=== PATIENT | female | born 1990 | race Caucasian/White ===

== ENCOUNTER 2017-04-29 05:57 | Inpatient (IN) ==
[2017-04-29] MEDS ORDERED: MEPERIDINE 50 MG/1 ML VIAL IM PRN (06:38)
[2017-04-29] MEDS ORDERED: ONDANSETRON 4 MG/2 ML VIAL IV PRN ×2 (06:38→19:49)
[2017-04-29] MEDS ORDERED: CITRIC ACID/SODIUM CITRATE 30 ML UDCUP PO ONE (06:45)
[2017-04-29] MEDS ORDERED: FAMOTIDINE 20 MG/2 ML VIAL IV ONE (06:46)
[2017-04-29] MEDS ORDERED: OXYTOCIN/LR 20 UNIT/1,000 ML BAG IV SCH (07:00)
[2017-04-29] MEDS ORDERED: fentaNYL 2 MCG/ROPIV 0.2% EPID 150 ML EPIDURAL SCH (07:00)
[2017-04-29 07:20] LABS: Basophils % 0.1 % (0.0-0.8); Eosinophils # 0.1 10*3/uL (0.0-0.87); Eosinophils % 0.8 % (0.00-10.9); Hematocrit 29.8 VOL% (35.7-47.0); Hemoglobin 9.9 GM/DL (12.0-16.0); Immature Granulocytes % 0.4 %; Immature Granulocytes Absolute 0.03 #; Lymphocytes # 1.3 10*3/uL (1.4-4.0); Lymphocytes % 18.4 % (21.3-54.2); Mean Corpuscular HGB Conc 33.2 GM/DL (32-36); Mean Corpuscular Hemoglobin 28 PG (27-34); Mean Corpuscular Volume 85.4 FL (87-102); Mean Platelet Volume 9.7 FL (9.6-12.0); Monocytes # 0.4 10*3/uL (0.11-0.8); Monocytes % 5.6 % (1.7-12.7); Neutrophils # 5.3 10*3/uL (1.4-7.4); Neutrophils % 74.7 % (38.7-73.9); Platelet Count 196 T/CUMM (130-400); Red Blood Count 3.49 MC/CUMM (3.8-5.5); Red Cell Distribution Width 13.1 % (9.3-17.3); White Blood Count 7.1 T/CUMM (4-12)
[2017-04-29 07:30] LABS: INR 0.9; PT Patient Result 9.6 SECS; Partial Thromboplastin Time 27.8 SECS (0-40)
[2017-04-29] MEDS ORDERED: INFLUENZA VIRUS VACCINE 0.5 ML SYRINGE IM ONE (07:30)
[2017-04-29] MEDS: LACTATED RINGERS 1,000 ML IV SCH ×2 (07:33→16:01)
[2017-04-29 07:37] LABS: Apearance,Urine CLOUDY (Clear); Bilirubin,Urine Negative (Negative); Blood, Urine Large mg/dL (Negative); Calcium Oxalate Crystals,Urine Moderate /HPF (Few); Glucose,Urine (UA) Negative (Negative); Ketones,Urine 5 mg/dL (Negative); Mucus,Urine Many /LPF (Occasional); Nitrite,Urine Negative (Negative); Protein,Urine 30 MG/DL; RBC,Urine 257 /HPF (0-4); Squamous Epithelial Cell,Urine Many /HPF (0-10); Urine Color Amber (Yellow); Urine Specific Gravity 1.029 (1.001-1.035); WBC,Urine 95 /HPF (0-6)
[2017-04-29 07:42] LABS: Barbiturates Screen,Urine Negative (Negative); Benzodiazepines Screen,Urine Negative (Negative); Cannabinoid Screen,Urine Positive (Negative); Opiate Screen,Urine Negative (Negative); Phencyclidine Screen,Urine Negative (Negative)
[2017-04-29 07:47] LABS: Albumin 2.6 G/DL (3.4-5.0); Bilirubin,Total 0.5 MG/DL (0.2-1.0); Calcium 8.6 MG/DL (8.5-10.1); Osmolality,Calculated 275.4 MOS/KG (273-304); Potassium 3.5 MMOL/L (3.5-5.1); Uric Acid 4.8 MG/DL (2.6-6.0)
[2017-04-29] MEDS ORDERED: ePHEDrine 50 MG/ML AMP ONE (08:18)
[2017-04-29] MEDS ORDERED: LACTATED RINGERS 1,000 ML IV ONE (08:49)
[2017-04-29] MEDS ORDERED: LABETALOL 100 MG TABLET PO SCH (09:00)
[2017-04-29 12:42] LABS: Apearance,Urine CLEAR (Clear); Bacteria,Urine Occasional /HPF (Few); Bilirubin,Urine Negative (Negative); Blood, Urine Moderate mg/dL (Negative); Glucose,Urine (UA) Negative (Negative); Ketones,Urine Negative (Negative); Mucus,Urine Occasional /LPF (Occasional); Nitrite,Urine Negative (Negative); Protein,Urine Negative; RBC,Urine 22 /HPF (0-4); Squamous Epithelial Cell,Urine Occasional /HPF (0-10); Urine Color Yellow (Yellow); Urine Specific Gravity 1.012 (1.001-1.035); Urine Urobilinogen < 2.0 EU/DL (0.2-1.0); WBC,Urine 2 /HPF (0-6)
[2017-04-29] MEDS ORDERED: miSOPROStol 200 MCG TABLET ONE (13:11)
[2017-04-29] MEDS ORDERED: METHYLERGONOVINE 0.2 MG/1 ML AMP ONE (13:12)
[2017-04-29] MEDS ORDERED: miSOPROStol 200 MCG TABLET RECTAL ONE (14:03)
[2017-04-29 14:29] LABS: Cord Venous Blood HCO3 23.2 MMOL/L; Cord Venous Blood PCO2 38.1 MMHG
[2017-04-29] MEDS ORDERED: OXYTOCIN/LR 20 UNIT/1,000 ML BAG IV ONE (15:05)
[2017-04-29] MEDS ORDERED: oxyCODONE/ACETAMINOPHEN 5-325 MG TABLET PO PRN ×2 (17:04→23:51)
[2017-04-29] MEDS ORDERED: RHO(D) IMMUNE GLOBULIN 300 MCG SYRINGE IM ONE (17:04)
[2017-04-29] MEDS ORDERED: MEASLES/MUMPS/RUBELLA VACCINE 0.5 ML VIAL SUBCUT ONE (17:04)
[2017-04-29] MEDS ORDERED: WITCH HAZEL PADS 100/JAR TOP PRN (17:04)
[2017-04-29] MEDS ORDERED: BENZOCAINE 20%/MENTHOL 0.5% SPRAY 56 GM CAN TOP PRN (17:04)
[2017-04-29] MEDS ORDERED: BISACODYL 10 MG SUPP RECTAL PRN (17:04)
[2017-04-29] MEDS ORDERED: ACETAMINOPHEN 325 MG TABLET PO PRN (17:04)
[2017-04-29] MEDS ORDERED: DIPH/TET/ACEL PERT BOOSTER VACCINE 0.5 ML VIAL IM ONE (17:04)
[2017-04-29] MEDS ORDERED: LANOLIN 50% CREAM 0.3 OZ TUBE TOP PRN (17:04)
[2017-04-29] MEDS ORDERED: HYDROCORTISONE 2.5% RECTAL CREAM 30 GM TUBE TOP PRN (17:04)
[2017-04-29] MEDS: oxyCODONE/ACETAMINOPHEN 5-325 MG TABLET PO PRN ×2 (18:28→20:09)
[2017-04-29] MEDS: IBUPROFEN 800 MG TABLET PO PRN (18:28)
[2017-04-29] MEDS: LABETALOL 100 MG TABLET PO SCH (21:23)
[2017-04-29] MEDS: DOCUSATE SODIUM 100 MG CAPSULE PO SCH (21:23)
[2017-04-30] MEDS: oxyCODONE/ACETAMINOPHEN 5-325 MG TABLET PO PRN ×5 (00:14→21:31)
[2017-04-30 05:43] LABS: Basophils % 0.1 % (0.0-0.8); Eosinophils # 0.1 10*3/uL (0.0-0.87); Eosinophils % 0.9 % (0.00-10.9); Hematocrit 24.4 VOL% (35.7-47.0); Hemoglobin 7.9 GM/DL (12.0-16.0); Immature Granulocytes % 0.3 %; Immature Granulocytes Absolute 0.02 #; Lymphocytes # 1.7 10*3/uL (1.4-4.0); Lymphocytes % 24.6 % (21.3-54.2); Mean Corpuscular HGB Conc 32.4 GM/DL (32-36); Mean Corpuscular Hemoglobin 28 PG (27-34); Mean Corpuscular Volume 85.9 FL (87-102); Mean Platelet Volume 9.5 FL (9.6-12.0); Monocytes # 0.4 10*3/uL (0.11-0.8); Monocytes % 6.1 % (1.7-12.7); Neutrophils # 4.6 10*3/uL (1.4-7.4); Platelet Count 157 T/CUMM (130-400); Red Blood Count 2.84 MC/CUMM (3.8-5.5); Red Cell Distribution Width 13.2 % (9.3-17.3); White Blood Count 6.7 T/CUMM (4-12)
[2017-04-30] MEDS: FERROUS SULFATE 325 MG TABLET PO SCH ×3 (09:59→20:42)
[2017-04-30] MEDS: LABETALOL 100 MG TABLET PO SCH ×2 (09:59→20:42)
[2017-04-30] MEDS: DOCUSATE SODIUM 100 MG CAPSULE PO SCH ×2 (09:59→20:42)
[2017-04-30] MEDS: IBUPROFEN 800 MG TABLET PO PRN ×2 (11:44→21:30)
[2017-04-30] MEDS ORDERED: ONDANSETRON 4 MG TABLET PO PRN (15:47)
[2017-04-30] MEDS ORDERED: SODIUM CHLORIDE 0.9% 1,000 ML IV PRN (20:52)
[2017-05-01] MEDS: oxyCODONE/ACETAMINOPHEN 5-325 MG TABLET PO PRN (04:12)
[2017-05-01] MEDS: IBUPROFEN 800 MG TABLET PO PRN ×2 (04:14→10:17)
[2017-05-01 07:35] VITALS: BP 146/88
[2017-05-01] MEDS: DOCUSATE SODIUM 100 MG CAPSULE PO SCH (08:25)
[2017-05-01] MEDS: FERROUS SULFATE 325 MG TABLET PO SCH (08:25)
[2017-05-01 08:38] LABS: Basophils % 0.4 % (0.0-0.8); Eosinophils # 0.1 10*3/uL (0.0-0.87); Eosinophils % 2.1 % (0.00-10.9); Hematocrit 31.1 VOL% (35.7-47.0); Immature Granulocytes % 0.4 %; Immature Granulocytes Absolute 0.02 #; Lymphocytes # 1.6 10*3/uL (1.4-4.0); Lymphocytes % 29.2 % (21.3-54.2); Mean Corpuscular HGB Conc 32.5 GM/DL (32-36); Mean Corpuscular Hemoglobin 28 PG (27-34); Mean Corpuscular Volume 87.4 FL (87-102); Mean Platelet Volume 9.8 FL (9.6-12.0); Monocytes # 0.3 10*3/uL (0.11-0.8); Monocytes % 5.2 % (1.7-12.7); Neutrophils # 3.5 10*3/uL (1.4-7.4); Neutrophils % 62.7 % (38.7-73.9); Platelet Count 176 T/CUMM (130-400); Red Cell Distribution Width 13.6 % (9.3-17.3); White Blood Count 5.6 T/CUMM (4-12)
[2017-05-01 08:40] LABS: Hemoglobin 10.1 GM/DL (12.0-16.0); Red Blood Count 3.56 MC/CUMM (3.8-5.5)
[2017-05-01] MEDS ORDERED: INFLUENZA VIRUS VACCINE 0.5 ML SYRINGE IM ONE (09:42)
[2017-05-01] MEDS: LABETALOL 100 MG TABLET PO SCH (10:17)
== END 2017-05-01 11:30 | disposition home or self-care (01) | DRG 560 ==
LOC: N.LDOUT 05:57 → N.LD 05:58 → N.OB 17:04
PROVIDERS: ADMIT Obstetrics & Gynecology; ATTEND Obstetrics & Gynecology